=== PATIENT | female | born 1955 | race Caucasian/White ===

== ENCOUNTER 2017-06-28 11:46 | Outpatient (CLI) | payer OTHER ==
--- NOTE | 2017-06-28 13:12 | RAD ---
AP PELVIS: HISTORY: Left hip pain. FINDINGS: No fracture, dislocation, or bony destruction is identified. There are mild degenerative changes in the hip joints. POS: [facility]
--- NOTE | 2017-06-28 13:13 | RAD ---
LEFT HIP TWO VIEWS: HISTORY: Left hip pain. FINDINGS: No fracture, dislocation, or bony destruction is seen. Mild degenerative changes are present. POS: [facility]
== END 2017-06-28 11:47 | disposition home or self-care (01) ==
LOC: MADRAD 11:46
PROVIDERS: ATTEND Family Medicine
DX: M25.552 Pain in left hip (principal)
CPT/HCPCS: 72170

== ENCOUNTER 2017-07-19 16:41 | Outpatient (CLI) | payer OTHER ==
--- NOTE | 2017-07-19 17:12 | RAD ---
THREE VIEWS OF THE LEFT ANKLE 07/19/17 HISTORY: Rolled left ankle three days ago and now has left ankle pain and swelling. FINDINGS: There is osteopenia. Ankle mortise is congruent. No fracture or dislocation is seen. There is subcuta neous soft tissue swelling seen at the lateral aspect of the ankle as well as anteriorly. No other fi ndings. IMPRESSION: 1. Subcutaneous soft tissue swelling without evidence of an acute osseous abnormality. 2. Osteopenia. POS: [facility]
== END 2017-07-19 16:42 | disposition home or self-care (01) ==
LOC: MADRAD 16:41
PROVIDERS: ATTEND Family Medicine
DX: M25.572 Pain in left ankle and joints of left foot (principal); M79.89 Other specified soft tissue disorders; M85.872 Other specified disorders of bone density and structure, left ankle and foot

== ENCOUNTER 2017-09-06 12:01 | Outpatient (CLI) | payer OTHER ==
[2017-09-06 12:49] LABS: #Basophils 0.1 thou/uL (0.0-0.2); #Eosinphils 0.1 thou/uL (0.0-0.7); #Lymphocytes 1.4 thou/uL (1.20-3.40); #Monocytes 0.4 thou/uL (0.11-0.59); #Neutrophils 2.6 thou/uL (1.40-6.50); %Basophils 1.7 % (0.0-1.0); %Eosinophils 1.8 % (0.0-10.0); %Lymphocytes 30.1 % (21.0-51.0); %Monocytes 8.6 % (0.0-10.0); %Neutrophils 57.7 % (42.0-75.0); Hemoglobin 17.3 g/dL (12.0-16.0); Mean Corpuscular HGB CONC 33.3 g/dL (32.0-36.0); Mean Corpuscular Hemoglobin 34.8 pg (27.0-31.0); Mean Corpuscular Volume 104.4 fl (81.0-99.0); Platelet Count 248 thou/uL (130-400); RBC Distribution Width 12.7 % (11.5-14.5); Red Blood Cell (RBC) Count 4.97 mill/uL (4.20-5.40); White Blood Cell (WBC) Count 4.5 thou/uL (4.8-10.8)
[2017-09-06 12:57] LABS: PLT Morphology Comment Appears Adequate
[2017-09-06 13:07] LABS: ALT (SGPT) Less than 7 U/L (8-55); AST (SGOT) 16 U/L (5-34); Albumin 4.2 g/dL (3.5-5.0); Alkaline Phosphatase 126 U/L (40-150); Anion Gap 18 mmol/L (10-20); BUN (Urea Nitrogen) 20 mg/dL (9.8-20.1); Bilirubin, Total 0.6 mg/dL (0.2-1.2); Calc. Creatinine Clearance 0 mL/min (70-130); Calcium 9.4 mg/dL (7.8-10.44); Carbon Dioxide 26 mmol/L (22-29); Chloride 99 mmol/L (98-107); Estimated GFR-MDRD Greater than 90; Globulin 3.3 g/dL (2.4-3.5); Glucose 92 mg/dL (70-105); Potassium 3.6 mmol/L (3.5-5.1); Protein, Total 7.5 g/dL (6.0-8.3); Sodium 139 mmol/L (136-145)
[2017-09-08 11:01] LABS: ANA Symphony (Qualitative) Negative (Negative); ANA Symphony (Quantitative) 0.1 Ratio (<0.7 Negative); dsDNA IgG Antibody 0.7 IU/mL (<10 Negative)
[2017-09-09 23:07] LABS: Angiotensin Converting Enzyme 39 U/L (14-82)
== END 2017-09-06 12:02 | disposition home or self-care (01) ==
LOC: MADLAB 12:01
PROVIDERS: ATTEND Student in an Organized Health Care Education/Training Program
DX: G62.9 Polyneuropathy, unspecified (principal); E55.9 Vitamin D deficiency, unspecified; E53.1 Pyridoxine deficiency; E53.8 Deficiency of other specified B group vitamins; E51.9 Thiamine deficiency, unspecified
CPT/HCPCS: 36415; 80053; 82164; 82306; 82607; 82951; 84165; 84207; 84425; 84443; 85025; 85652; 86038; 86140; 86225; 86334; 86592

== ENCOUNTER 2018-02-01 15:10 | Emergency (ER) | payer SELFPAY ==
[2018-02-01 15:51] LABS: #Lymphocytes 1.1 thou/uL (1.20-3.40); #Monocytes 0.4 thou/uL (0.11-0.59); #Neutrophils 5.2 thou/uL (1.40-6.50); %Basophils 0.5 % (0.0-1.0); %Eosinophils 0.3 % (0.0-10.0); %Monocytes 5.9 % (0.0-10.0); %Neutrophils 76.3 % (42.0-75.0); MDiff Complete? YES; Macrocytosis SLIGHT = 6-15 cells (100X) (0-5/hpf); Mean Corpuscular HGB CONC 34.6 g/dL (32.0-36.0); Mean Corpuscular Hemoglobin 34.5 pg (27.0-31.0); Mean Corpuscular Volume 99.7 fL (78.0-98.0); Mean Platelet Volume 5.7 fL (7.4-10.4); Platelet Count 270 thou/uL (130-400); RBC Distribution Width 11.4 % (11.5-14.5); Red Blood Cell (RBC) Count 3.77 mill/uL (4.20-5.40); White Blood Cell (WBC) Count 6.7 thou/uL (4.8-10.8)
[2018-02-01 15:53] LABS: INR-International Normal Ratio 0.9; Prothrombin Time 12.7 SEC (12.0-14.7)
[2018-02-01 16:03] LABS: ALT (SGPT) 14 U/L (8-55); AST (SGOT) 25 U/L (5-34); Albumin 3.4 g/dL (3.5-5.0); Alkaline Phosphatase 46 U/L (40-150); Anion Gap 17 mmol/L (10-20); BUN (Urea Nitrogen) 5 mg/dL (9.8-20.1); Bilirubin, Total Less than 0.2 mg/dL (0.2-1.2); Calc. Creatinine Clearance 0 mL/min (70-130); Calcium 9.1 mg/dL (7.8-10.44); Carbon Dioxide 27 mmol/L (22-29); Chloride 105 mmol/L (98-107); Estimated GFR-MDRD Greater than 90; Globulin 2.7 g/dL (2.4-3.5); Glucose 89 mg/dL (70-105); Potassium 4.1 mmol/L (3.5-5.1); Protein, Total 6.1 g/dL (6.0-8.3); Sodium 145 mmol/L (136-145)
--- NOTE | 2018-02-01 16:05 | CT ---
CT BRAIN: Date: 02-01-18 Provided Clinical History: Fall with head injury and loss of consciousness. FINDINGS: The ventricular system appears normal in size and morphology. There is no evidence for intracranial h emorrhage or mass effect. Extracranial soft tissues and osseous structures demonstrate an unremarkabl e CT appearance. IMPRESSION: No evidence for intracranial hemorrhage or mass effect. POS: [facility]
--- NOTE | 2018-02-01 16:10 | CT ---
CT CERVICAL SPINE 02/01/18 PROVIDED CLINICAL HISTORY: Fall with head injury and neck pain. FINDINGS: There is no evidence for fracture or traumatic subluxation. No prevertebral soft tissue swelling appa rent. Conspicuous biapical pleural parenchymal scarring type changes. IMPRESSION: No evidence for fracture or traumatic subluxation. POS: [facility]
--- NOTE | 2018-02-01 16:13 | RAD ---
CHEST ONE VIEW: 02/01/18 HISTORY: Fall. Chest injury. COMPARISON: None. FINDINGS: The cardiac silhouette magnified by projection. Pulmonary vasculature upper limits of normal. Mediast inum is midline with aortic calcification. No confluent air space consolidation or evidence of pneumo thorax. Calcified granulomata are consistent with healed granulomatous disease. IMPRESSION: No active cardiopulmonary abnormalities are demonstrated. POS: [facility]
--- NOTE | 2018-02-01 16:23 | CT ---
CT ABDOMEN AND PELVIS WITHOUT CONTRAST: 02/01/18 HISTORY: Injury. Fall at 1430. COMPARISON: None. FINDINGS: Mild atelectatic changes in the lung bases. There is a peripheral left lung base ovoid solid nodule w ith average measurement of 5 mm. There are punctate 1 mm calculus superior pole right renal collecting system. 2 mm calculus interpola r right renal collecting system. No right sided hydroureteronephrosis. Left renal collecting system is without nephroureterolithiasis or hydroureteronephrosis. The urinary bladder is moderately distended without calculus. No free intraperitoneal gas. The appendix is visualized and is normal. There are compression deformities at L2 and L1 which are age indeterminate. Moderate atherosclerotic plaque aortoiliac system without aneurysmal dilatation. IMPRESSION: 1. Nonobstructing right sided renal calculi. 2. Age indeterminate L1 and L2 compression deformities. Recommend correlation with focal tendern ess. 3. There is sclerosis incompletely evaluated at the T10 vertebral body. This may reflect hemangi lola or other process. 4. No free intraperitoneal gas or fluid. 5. Left lung base peripheral solid nodule with average diameter of 5 mm. In a low oscar patient, no followup is required. In a high risk patient, optional CT in 12 months can be performed. 6. Possible hematoma of the right gluteus sivakumar muscle as well as small soft tissue contusion of the right thigh and left thigh. 7. Old left inferior pubic ramus fracture. POS: [facility]
== END 2018-02-01 17:00 | disposition home or self-care (01) ==
LOC: MADERS 15:10
DX: M54.9 Dorsalgia, unspecified (principal); F41.9 Anxiety disorder, unspecified; F17.210 Nicotine dependence, cigarettes, uncomplicated; Z79.899 Other long term (current) drug therapy; W19.XXXA Unspecified fall, initial encounter; Y92.239 Unspecified place in hospital as the place of occurrence of the external cause
CPT/HCPCS: 36415; 70450; 71045; 72125; 74176; 80053; 85025; 85610; 93005; 96360